=== PATIENT | male | born 1965 | race Hispanic/Latino ===

== ENCOUNTER 2019-08-07 07:43 | Inpatient (IN) | payer MEDICAID ==
--- NOTE | 2019-08-07 08:09 | Emergency Department Report ---
ED Chest Pain HPI - General Stated Complaint: CHEST PAIN Time Seen by Provider: 08/07/19 07:47 Source: patient Mode of arrival: Ambulatory Limitations: No Limitations - History of Present Illness Initial Comments: 53-year-old male with a past medical history of CAD with 2 stents and a current smoker presents to the hospital complaining of chest pains after waking up this morning. Patient describes a constant substernal and left-sided pressure rated at 7/10 in intensity. Patient states the pain feels similar to his previous heart attack. Patient denies pain radiation, nausea, vomiting, shortness of breath, or diaphoresis. By time of EMS arrival at 6:44 AM pain had resolved. Patient received aspirin. Patient states he had 2 stents (each placed 2 months apart) 2 years ago and has not had a cardiac cath since. He is not taking any medications including aspirin or Plavix. He recently moved here from [place] does not have a primary care doctor or hl7 developer currently. - Related Data Allergies Allergy/AdvReac Type Severity Reaction Status Date / Time Penicillins Allergy Unknown Verified 08/07/19 08:29 Heart Score - HEART Score History: Moderately suspicious EKG: Non-specific Age: 45-65 Risk factors: 1-2 risk factors Troponin: < normal limit HEART Score: 4 ED Review of Systems ROS: Stated complaint: CHEST PAIN Other details as noted in HPI Comment: All other systems reviewed and negative ED Past Medical Hx - Surgical History Hx Coronary Stent: Yes (x2 2018) - Social History Smoking Status: Current Every Day Smoker ED Physical Exam - Other Other exam information: General: No acute distress Head: Atraumatic Eyes: normal appearance ENT: Moist mucous membranes Neck: Normal appearance, no midline tenderness Chest: Clear to auscultation bilaterally, chest wall nontender CV: Regular rate and rhythm Abdomen: Soft, normal bowel sounds, nontender, nondistended, no rebound or guarding Back: Normal inspection Extremity: Normal inspection, full range of motion, no calf tenderness or leg edema Neuro: Alert O x 3, no facial asymmetry, speech clear, no gross motor sensory deficit Psych: Appropriate behavior Skin: No rash ED Course Vital Signs 08/07/19 08/07/19 08/07/19 07:50 08:00 08:15 Temperature 98.1 F Pulse Rate 72 77 Respiratory 16 15 Rate Blood Pressure 154/82 155/86 O2 Sat by Pulse 95 95 96 Oximetry 08/07/19 08/07/19 08/07/19 08:30 08:45 09:00 Temperature Pulse Rate 78 76 76 Respiratory 19 14 17 Rate Blood Pressure 161/89 150/85 164/86 O2 Sat by Pulse 97 97 99 Oximetry 08/07/19 08/07/19 08/07/19 09:15 09:30 09:45 Temperature Pulse Rate 73 75 75 Respiratory 18 14 15 Rate Blood Pressure 150/84 149/90 161/86 O2 Sat by Pulse 97 97 98 Oximetry 08/07/19 08/07/19 08/07/19 10:00 10:15 10:20 Temperature Pulse Rate 77 76 75 Respiratory 12 18 Rate Blood Pressure 151/80 142/81 161/86 O2 Sat by Pulse 99 99 Oximetry 08/07/19 08/07/19 08/07/19 10:30 10:45 11:00 Temperature Pulse Rate 73 76 73 Respiratory 14 15 Rate Blood Pressure 148/82 150/82 147/85 O2 Sat by Pulse 100 98 99 Oximetry - Reevaluation(s) Reevaluation #1: 08/07/19 08:17 after initial evaluation, heparin bolus and drip ordered, pt pain free - Consultations Consultation #1: 08/07/19 at 7:11a EMS ekg transmitted and discussed and reviewed with interventionalist hl7 developer Dr. Gudino. NO STEMI and no acute intervention recommended. Ekg repeated upon arrival 7:55am ED ekg reviewed by interventionalist. Similar to prehospital ekg. No intervention recommended at this time. Pt is pain free in ED upon arrival Consultation #2: 08/07/19 09:00 case d/w Amina Hernandez, will consult, request NPO, orders placed and RN informed MOSES score - Moses Score Age > 65: (0) No Aspirin use within the Past 7 Days: (0) No 3 or more CAD Risk Factors: (0) No 2 or more Angina events in past 24 hrs: (0) No Known CAD with more than 50% Stenosis: (1) Yes Elevated Cardiac Markers: (0) No ST Deviation Greater than 0.5mm: (0) No MOSES Score: 1 ED Medical Decision Making - Lab Data Result diagrams: 08/07/19 08:03 08/07/19 08:03 Lab Results 08/07/19 08/07/19 08/07/19 Range/Units 08:03 08:03 08:03 WBC 9.2 (4.5-11.0) K/mm3 RBC 4.12 (3.65-5.03) M/mm3 Hgb 13.2 (11.8-15.2) gm/dl Hct 38.5 (35.5-45.6) % MCV 93 (84-94) fl MCH 32 (28-32) pg MCHC 34 (32-34) % RDW 13.1 L (13.2-15.2) % Plt Count 221 (140-440) K/mm3 Lymph % (Auto) 9.6 L (13.4-35.0) % [place] % (Auto) 8.3 H (0.0-7.3) % Eos % (Auto) 1.7 (0.0-4.3) % Baso % (Auto) 0.8 (0.0-1.8) % Lymph # 0.9 L (1.2-5.4) K/mm3 [place] # 0.8 (0.0-0.8) K/mm3 Eos # 0.2 (0.0-0.4) K/mm3 Baso # 0.1 (0.0-0.1) K/mm3 Seg Neutrophils % 79.6 H (40.0-70.0) % Seg Neutrophils # 7.3 (1.8-7.7) K/mm3 PT 13.0 (12.2-14.9) Sec. INR 0.97 (0.87-1.13) APTT 26.3 (24.2-36.6) Sec. Sodium 133 L (137-145) mmol/L Potassium 4.7 (3.6-5.0) mmol/L Chloride 101.3 (98-107) mmol/L Carbon Dioxide 20 L (22-30) mmol/L Anion Gap 16 mmol/L BUN 14 (9-20) mg/dL Creatinine 1.1 (0.8-1.5) mg/dL Estimated GFR > 60 ml/min BUN/Creatinine Ratio 13 % Glucose 113 H (75-100) mg/dL Calcium 9.4 (8.4-10.2) mg/dL Troponin T < 0.010 (0.00-0.029) ng/mL - EKG Data -: EKG Interpreted by Me EKG shows normal: sinus rhythm, ST-T waves (slight st elevation inferior lead) Rate: normal - EKG Data When compared to previous EKG there are: previous EKG unavailable - Radiology Data Radiology results: report reviewed CHEST 1 VIEW INDICATION: Chest Pain. COMPARISON: None FINDINGS: Support devices: None. Heart: Within normal limits. Lungs/Pleura: No acute air space or interstitial disease. Additional findings: None. IMPRESSION: Normal AP chest - Medical Decision Making no acute intervention recommended by hl7 developer at this time. Initial troponin negative and patient pain free in the ED. Patient received aspirin prior to arrival. Patient started on heparin bolus plus drip given a history of CAD with stents and medication noncompliance. Case discussed with both hl7 developer and hospitalist. - Differential Diagnosis mi, unstable angina, atypical cp, pe Critical Care Time: No Critical care attestation.: If time is entered above; I have spent that time in minutes in the direct care of this critically ill patient, excluding procedure time. ED Disposition Clinical Impression: Chest pain, History of heart artery stent, Smoker, Noncompliance with medication regimen Disposition: DC-09 OP ADMIT IP TO THIS HOSP Is pt being admited?: Yes Does the pt Need Aspirin: Yes (provided by ems) Condition: Stable Time of Disposition: 08:53 (Dr Gilman/hosp as per Dr Dickey)
[2019-08-07] MEDS ORDERED: HEPARIN 10,000 UNITS/10 ML VIAL IV ONE (08:17)
--- NOTE | 2019-08-07 08:19 | XRay Report ---
CHEST 1 VIEW INDICATION: Chest Pain. COMPARISON: None FINDINGS: Support devices: None. Heart: Within normal limits. Lungs/Pleura: No acute air space or interstitial disease. Additional findings: None. IMPRESSION: Normal AP chest Signer Name: Edu Chacon Jr, MD Signed: 08/07/2019 8:14 AM Workstation Name: [id number]
[2019-08-07 08:24] LABS: Basophils # (Auto) 0.1 K/mm3 (0.0-0.1); Basophils % (Auto) 0.8 % (0.0-1.8); Eosinophils # (Auto) 0.2 K/mm3 (0.0-0.4); Eosinophils % (Auto) 1.7 % (0.0-4.3); Hematocrit 38.5 % (35.5-45.6); Hemoglobin 13.2 gm/dl (11.8-15.2); Lymphocytes # (Auto) 0.9 K/mm3 (1.2-5.4); Lymphocytes % (Auto) 9.6 % (13.4-35.0); Mean Corpuscular HGB Conc 34 % (32-34); Mean Corpuscular Volume 93 fl (84-94); Monocytes # (Auto) 0.8 K/mm3 (0.0-0.8); Monocytes % (Auto) 8.3 % (0.0-7.3); Platelet Count 221 K/mm3 (140-440); Red Blood Count 4.12 M/mm3 (3.65-5.03); Red Cell Distribution Width 13.1 % (13.2-15.2)
[2019-08-07 08:45] LABS: BUN/Creatinine Ratio 13; Blood Urea Nitrogen 14 mg/dL (9-20); Calcium 9.4 mg/dL (8.4-10.2); Hemolysis Index 9
[2019-08-07 08:49] LABS: INR 0.97 (0.87-1.13)
[2019-08-07 08:50] LABS: Partial Thromboplastin Time 26.3 Sec. (24.2-36.6)
[2019-08-07] MEDS ORDERED: HEPARIN/ 0.45% NACL DRIP 25,000 UNIT/500 ML BAG IV SCH ×2 (09:00→11:00)
[2019-08-07] MEDS ORDERED: ASPIRIN EC 81 MG TAB PO ONE (09:33)
[2019-08-07] MEDS ORDERED: carvediloL 3.125 MG TAB PO ONE (09:34)
--- NOTE | 2019-08-07 09:38 | History and Physical Report ---
History of Present Illness Date of examination: 08/07/19 Date of admission: 08/07/19 Chief complaint: chest pain History of present illness: 53-year-old male with a past medical history of CAD with 2 stents and a current smoker presents to the hospital complaining of chest pains after waking up this morning. Patient describes a constant substernal and left-sided pressure rated at 7/10 in intensity. Patient states the pain feels similar to his previous heart attack. Patient denies pain radiation, nausea, vomiting, shortness of breath, or diaphoresis. By time of EMS arrival at 6:44 AM pain had resolved. Patient received aspirin. Patient states he had 2 stents (each placed 2 months apart) 2 years ago and has not had a cardiac cath since. He is not taking any medications including aspirin or Plavix. 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 Review of Systems Constitutional: no weight loss, no weight gain, no fever, no chills, no sweats Ears, nose, mouth and throat: no ear pain, no nose pain, no sinus pressure, no sinus pain Cardiovascular: + chest pain, no orthopnea, no palpitations, no rapid/irregular heart beat, no edema, no syncope, no lightheadedness, no shortness of breath, no dyspnea on exertion, no leg edema Respiratory: no cough, no shortness of breath, no dyspnea on exertion, no congestion, no wheezing, no pain on inspiration Gastrointestinal: no abdominal pain, no nausea, no vomiting, no diarrhea, no constipation, no change in bowel habits Genitourinary Male: no dysuria, no hematuria, no flank pain, no discharge, no urinary frequency, no urinary hesitancy Musculoskeletal: no neck stiffness, no neck pain, no shooting arm pain, no arm numbness/tingling, no low back pain, no shooting leg pain Integumentary: no rash, no pruritis, no redness, no sores, no wounds Neurological: no head injury, no paralysis, no weakness, no parathesias, no numbness, no tingling, no seizures, no syncope Psychiatric: no anxiety Endocrine: no cold intolerance, no heat intolerance Hematologic/Lymphatic: no easy bruising, no easy bleeding Allergic/Immunologic: no urticaria, no wheezing Medications and Allergies Allergies Allergy/AdvReac Type Severity Reaction Status Date / Time Penicillins Allergy Unknown Verified 08/07/19 08:29 Home Medications Medication Instructions Recorded Confirmed Last Taken Type Banophen Anti-Itch 25 mg PO HS 08/07/19 08/08/19 08/06/19 History 25 mg DULoxetine [Cymbalta] 30 mg PO DAILY 08/07/19 08/08/19 08/06/19 History 30 mg Radnor Carbonate ER [Lithobid ER] 300 mg PO BID 08/07/19 08/08/19 08/06/19 History 300 mg Pilocarpine (Nf) 5 mg PO DAILY 08/07/19 08/08/19 08/06/19 History 5 mg QUEtiapine [SEROquel] 200 mg PO HS 08/07/19 08/08/19 08/06/19 History 200 mg carBAMazepine [TEGretol] 200 mg PO BID 08/07/19 08/08/19 08/06/19 History 200 mg lamoTRIgine [LaMICtal] 100 mg PO BID 08/07/19 08/08/19 08/06/19 History 100 mg Active Meds: Active Medications Aspirin (Halfprin Ec) 81 mg PO ONCE ONE Stop: 08/07/19 09:34 Atorvastatin Calcium (Lipitor) 40 mg PO QHS FLOWER Carvedilol (Coreg) 3.125 mg PO ONCE ONE Stop: 08/07/19 09:35 Heparin Sodium/Sodium Chloride (Heparin/ 0.45% Nacl-25,000 Unit/500 Ml) 25,000 unit in 500 mls @ 24.494 mls/hr IV TITRATE FLOWER; Protocol Last Admin: 08/07/19 08:36 Dose: 15 units/kg/hr, 24.494 mls/hr Documented by: Nicotine (Habitrol) 14 mg TD ONCE ONE Stop: 08/07/19 09:34 Exam - Constitutional Vitals: Temp Pulse Resp BP Pulse Ox 98.1 F 76 17 164/86 99 08/07/19 07:50 08/07/19 09:00 08/07/19 09:00 08/07/19 09:00 08/07/19 09:00 Results - Labs CBC & Chem 7: 08/07/19 17:19 08/07/19 08:03 Labs: Abnormal lab results 08/07/19 08/07/19 Range/Units 08:03 08:03 RDW 13.1 L (13.2-15.2) % Lymph % (Auto) 9.6 L (13.4-35.0) % [place] % (Auto) 8.3 H (0.0-7.3) % Lymph # 0.9 L (1.2-5.4) K/mm3 Seg Neutrophils % 79.6 H (40.0-70.0) % Sodium 133 L (137-145) mmol/L Carbon Dioxide 20 L (22-30) mmol/L Glucose 113 H (75-100) mg/dL Assessment and Plan NSTEMI with elevated troponin CAD with h/o PCI HTN, uncontrolled tobacco abuse medication non compliance - admit telemetry - cont aspirin, nitro patch, heparin drip, statin - resume home medication - monitor serial troponin and EKG - cardiology consulted - plan for cardiac cath tomorrow
[2019-08-07] MEDS ORDERED: NICOTINE 14 MG/24 HR PATCH TD ONE (10:00)
--- NOTE | 2019-08-07 14:34 | Consultation ---
History of Present Illness Consult date: 08/07/19 Requesting physician: NOEMY MEEKS Consult reason: chest pain History of present illness: The pt is a 53-year-old male with a past medical history of CAD s/p AMI with 2 stents (each placed 2 months apart), HTN, current tobacco smoker. 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 He is not currently taking any prescription medications. He presented with c/o chest pain since this AM. He states that he woke up today in his normal state of health and went outside to smoke a cigarette. After he finished smoking the cigarette, he noted the onset of constant substernal and left-sided chest pressure. Patient denies pain radiation, nausea, vomiting, shortness of breath, or diaphoresis. By time of EMS arrival at 6:44 AM, the pain had resolved. Patient received aspirin. Patient states he had 2 stents and has not had a cardiac cath since. Past History Past Medical History: CAD, hypertension Social history: smoking Medications and Allergies Allergies Allergy/AdvReac Type Severity Reaction Status Date / Time Penicillins Allergy Unknown Verified 08/07/19 08:29 Active Meds: Active Medications Atorvastatin Calcium (Lipitor) 40 mg PO QHS FLOWER Heparin Sodium/Sodium Chloride (Heparin/ 0.45% Nacl-25,000 Unit/500 Ml) 25,000 unit in 500 mls @ 20 mls/hr IV TITRATE FLOWER; Protocol Review of Systems Constitutional: no weight loss, no weight gain, no fever, no chills, no sweats Ears, nose, mouth and throat: no ear pain, no nose pain, no sinus pressure, no sinus pain Cardiovascular: chest pain, no orthopnea, no palpitations, no rapid/irregular heart beat, no edema, no syncope, no lightheadedness, no shortness of breath, no dyspnea on exertion, no leg edema Respiratory: no cough, no shortness of breath, no dyspnea on exertion, no congestion, no wheezing, no pain on inspiration Gastrointestinal: no abdominal pain, no nausea, no vomiting, no diarrhea, no constipation, no change in bowel habits Genitourinary Male: no dysuria, no hematuria, no flank pain, no discharge, no urinary frequency, no urinary hesitancy Musculoskeletal: no neck stiffness, no neck pain, no shooting arm pain, no arm numbness/tingling, no low back pain, no shooting leg pain Integumentary: no rash, no pruritis, no redness, no sores, no wounds Neurological: no head injury, no paralysis, no weakness, no parathesias, no numbness, no tingling, no seizures, no syncope Psychiatric: no anxiety Endocrine: no cold intolerance, no heat intolerance Hematologic/Lymphatic: no easy bruising, no easy bleeding Allergic/Immunologic: no urticaria, no wheezing Physical Examination Vital Signs Temp Pulse Resp BP Pulse Ox 98.1 F 72 16 154/82 95 08/07/19 07:50 08/07/19 07:50 08/07/19 07:50 08/07/19 07:50 08/07/19 07:50 General appearance: no acute distress HEENT: Positive: PERRL Neck: Positive: neck supple, trachea midline Cardiac: Positive: Reg Rate and Rhythm, S1/S2, Systolic Murmur Lungs: Positive: Decreased Breath Sounds Neuro: Positive: Grossly Intact Abdomen: Negative: Tender Skin: Negative: Rash Musculoskeletal: No Pain Extremities: Absent: edema Results 08/07/19 08:03 08/07/19 08:03 Coagulation 08/07/19 Range/Units 08:03 PT 13.0 (12.2-14.9) Sec. INR 0.97 (0.87-1.13) APTT 26.3 (24.2-36.6) Sec. CBC 08/07/19 Range/Units 08:03 WBC 9.2 (4.5-11.0) K/mm3 RBC 4.12 (3.65-5.03) M/mm3 Hgb 13.2 (11.8-15.2) gm/dl Hct 38.5 (35.5-45.6) % Plt Count 221 (140-440) K/mm3 Lymph # 0.9 L (1.2-5.4) K/mm3 [place] # 0.8 (0.0-0.8) K/mm3 Eos # 0.2 (0.0-0.4) K/mm3 Baso # 0.1 (0.0-0.1) K/mm3 Comprehensive Metabolic Panel 08/07/19 Range/Units 08:03 Sodium 133 L (137-145) mmol/L Potassium 4.7 (3.6-5.0) mmol/L Chloride 101.3 (98-107) mmol/L Carbon Dioxide 20 L (22-30) mmol/L BUN 14 (9-20) mg/dL Creatinine 1.1 (0.8-1.5) mg/dL Glucose 113 H (75-100) mg/dL Calcium 9.4 (8.4-10.2) mg/dL - Imaging and Cardiology Echo: pending EKG: report reviewed, image reviewed EKG interpretations - Telemetry EKG Rhythm: Sinus Rhythm - EKG Sinus rhythms and dysrhythmias: sinus rhythm Assessment and Plan Chest pain currently resolved. Suha negative for AMI x 2. D/c heparin gtt and plan for lexiscan MPI stress test in AM. NPO after MN. Obtain echo. Optimize anti-ischemic regimen. Smoking cessation encouraged. Further recs to follow per hospital course. The patient has been seen in conjunction with Dr. Herrmann who agrees with the assessment and plan of care. - Patient Problems (1) Chest pain Current Visit: Yes Status: Acute (2) CAD (coronary artery disease) Current Visit: Yes Status: Chronic (3) Stented coronary artery Current Visit: Yes Status: Chronic (4) HTN (hypertension) Current Visit: Yes Status: Chronic (5) Tobacco use Current Visit: Yes Status: Chronic (6) Noncompliance with medication regimen Current Visit: Yes Status: Chronic
[2019-08-07 15:33] LABS: Chol/HDL Ratio 3.37 %
[2019-08-07 17:35] LABS: Hematocrit 39.5 % (35.5-45.6); Hemoglobin 13.3 gm/dl (11.8-15.2)
[2019-08-07 17:50] LABS: INR 1.02 (0.87-1.13)
[2019-08-07 17:51] LABS: Partial Thromboplastin Time 36.3 Sec. (24.2-36.6)
[2019-08-07] MEDS: METOPROLOL TARTRATE 25 MG TAB PO SCH (21:35)
[2019-08-08] MEDS: lamoTRIgine 100 MG TAB PO SCH ×3 (02:54→21:14)
[2019-08-08] MEDS: carBAMazepine 200 MG TAB PO SCH ×3 (02:54→21:14)
[2019-08-08] MEDS: QUEtiapine 200 MG TAB PO SCH ×2 (02:59→21:14)
[2019-08-08] MEDS ORDERED: REGADENOSON 0.4 MG/5 ML INJ IV ONE (08:22)
[2019-08-08] MEDS ORDERED: SODIUM CHLORIDE 0.9% 500 ML 500 ML IV SCH (09:00)
[2019-08-08] MEDS ORDERED: MIDAZOLAM 2 MG/2 ML INJ ONE (09:26)
[2019-08-08] MEDS ORDERED: fentaNYL 100 MCG/2 ML INJ ONE (09:26)
[2019-08-08] MEDS ORDERED: HEPARIN/NS 5000 UNIT/500ML 1,000 ML IR ONE (09:27)
[2019-08-08] MEDS: HEPARIN 10,000 UNITS/10 ML VIAL ONE ×3 (09:58→10:14)
[2019-08-08] MEDS: VERAPAMIL 5 MG/2 ML INJ ONE ×2 (09:58→10:03)
[2019-08-08] MEDS: LIDOCAINE (2%) 20 MG/1 ML VIAL 20 ML MDV INFILTRATI ONE ×2 (09:58→10:02)
[2019-08-08] MEDS ORDERED: ASPIRIN 325 MG TAB PO SCH (10:00)
[2019-08-08] MEDS ORDERED: PILOCARPINE HCL 5 MG PO SCH (10:00)
[2019-08-08] MEDS ORDERED: HEPARIN/NS 5000 UNIT/500ML 500 ML IR ONE (10:16)
--- NOTE | 2019-08-08 11:16 | Cardiac Catherization Report ---
CARDIAC CATHETERIZATION REPORT INDICATION FOR PROCEDURE: The patient is a 53-year-old white gentleman with history of coronary intervention done many years ago, with history of manic depression. Subsequently, he did not have any cardiac followup, presented with prolonged chest pain and mildly elevated troponin suggestive of non-STEMI. Hence, scheduled for cardiac catheterization for definitive diagnosis and treatment. The patient is aware of the procedure, potential complications and alternatives of therapy available. DESCRIPTION OF PROCEDURE: The patient was brought to the catheterization laboratory in a fasting condition. The patient was evaluated for moderate sedation. He was felt to be appropriate candidate for moderate sedation and was given IV Versed and fentanyl. Subsequently, the patient was prepared in standard fashion. Right wrist area was anesthetized with local anesthetic and right radial artery puncture was made using 21-gauge arterial puncture needle. Subsequently, 5-Lithuanian slender sheath was introduced. A 5-Lithuanian multipurpose catheter was used to obtain the angiograms of the left coronary artery in multiple views followed by angiograms of the right coronary artery and left ventriculogram done in SINHA projection using hand injection. At the end of the procedure, the patient was noted to have borderline lesion in the high mid LAD and it was felt the patient would benefit from a functional evaluation with IFR. Hence, the IFR setup was done and the patient received IV heparin as anticoagulant. Subsequently, a pressure wire was advanced in a standard fashion without any difficulty into the mid LAD, and IFR was obtained in a standard fashion. It was found to be 0.95 that is not significant hemodynamically. At the end of the procedure, angiograms performed. No complications from the passage of the wire. Wire and guidewire was removed and good hemostasis was achieved with application of radial band. No untoward complications were noted at the end of the procedure. The patient was monitored for any side effects from moderate sedation using pulse oximetry, EKG monitoring, and hemodynamic monitoring. The patient's moderate sedation monitoring started at 9:55 a.m. and ended at 10:22 a.m. The patient at the end of the sedation was communicating normally, moving all the extremities and breathing normally. No untoward complications were noted. Following findings were noted. HEMODYNAMICS: 1. Opening aortic pressure 131/64. Left ventricular pressure 135/34. No gradient across the aortic valve. Estimated ejection fraction 55%. 2. Left ventriculogram done in SINHA projection showed normal sized left ventricle with normal contractility. Mitral regurgitation could not be evaluated because of the limited amount of dye injected. It is to be noted the patient's end-diastolic pressure is elevated. 3. Right coronary artery arises normally from right coronary cusp, only very mild irregularities noted. This is codominant vessel. 4. Left coronary artery arises normally from left coronary cusp. Left main without significant disease. Proximal LAD is smooth and normal, high mid LAD showed eccentric lesion, which appears to be hazy in the range of 50-60%. Distal to this lesion, there is a widely patent mid LAD stent. Distal LAD without significant disease. Circumflex artery showed widely patent stent involving the proximal and mid part of the large OM branch. Overall, no obstructive lesions noted in the circumflex artery. Collaterals none. Considering the borderline lesion in the high mid LAD as mentioned above, functional evaluation was performed using IFR and it was found to be not hemodynamically significant in the range of 0.95. FINAL IMPRESSION: Widely patent stents in the mid LAD and obtuse marginal branch, normal LV systolic function noted. Codominant RCA without significant disease. There is a borderline high mid LAD lesion and it was found to be not hemodynamically significant. Considering the above angiographic pictures, the patient will be continued on aggressive risk factor modification and medical therapy. No untoward complications were noted. Findings were explained to the patient and his . They understand. JOB# [id number] HINA/CHUCK
[2019-08-08] MEDS ORDERED: FLU VACC QUAD 2019-20 (3 YR UP)/PF 60 MCG/0.5 ML SYRINGE IM ONE (12:00)
[2019-08-08] MEDS: DULoxetine 30 MG CAP PO SCH (12:07)
[2019-08-08] MEDS: NICOTINE 14 MG/24 HR PATCH TD SCH (12:07)
[2019-08-08] MEDS: LITHIUM CARBONATE ER 300 MG TAB PO SCH ×2 (12:07→21:13)
[2019-08-08] MEDS: METOPROLOL TARTRATE 25 MG TAB PO SCH ×2 (12:08→21:15)
--- NOTE | 2019-08-08 12:53 | Progress Note ---
Assessment and Plan S/p [facility] via [facility] this AM which showed patent stents, nonobstructive CAD. Cont with medical management. Importance of medication compliance and smoking cessation reiterated. Await echo. Pending echo does not show any gross abnormalities, pt may discharge from cardiology standpoint. Recommend follow up in our office with Dr. Herrmann within 1-2 weeks ([phone]). The patient has been seen in conjunction with Dr. Herrmann who agrees with the assessment and plan of care. - Patient Problems (1) NSTEMI (non-ST elevated myocardial infarction) Current Visit: Yes Status: Acute (2) Chest pain Current Visit: Yes Status: Resolved (3) CAD (coronary artery disease) Current Visit: Yes Status: Chronic (4) Stented coronary artery Current Visit: Yes Status: Chronic (5) HTN (hypertension) Current Visit: Yes Status: Chronic (6) Tobacco use Current Visit: Yes Status: Chronic (7) Noncompliance with medication regimen Current Visit: Yes Status: Chronic Subjective Date of service: 08/08/19 Principal diagnosis: nstemi Interval history: pt for [facility] today, no current cardiac complaints, did not sleep well last night. at bedside. Objective Last Vital Signs Temp 97.8 F 08/08/19 08:22 Pulse 74 08/08/19 12:08 Resp 18 08/08/19 08:22 BP 115/66 08/08/19 12:08 Pulse Ox 97 08/08/19 08:22 - Physical Examination HEENT: Positive: PERRL Neck: Positive: neck supple, trachea midline Cardiac: Positive: Reg Rate and Rhythm, S1/S2 Lungs: Positive: Decreased Breath Sounds Neuro: Positive: Grossly Intact Abdomen: Negative: Tender Skin: Negative: Rash Musculoskeletal: No Pain Extremities: Absent: edema - Labs and Meds Coagulation 08/07/19 Range/Units 17:19 PT 13.5 (12.2-14.9) Sec. INR 1.02 (0.87-1.13) APTT 36.3 (24.2-36.6) Sec. Lipids 08/07/19 Range/Units 14:21 Triglycerides 88 (2-149) mg/dL Cholesterol 162 (50-199) mg/dL HDL Cholesterol 48 (40-59) mg/dL Cholesterol/HDL Ratio 3.37 % CBC 08/07/19 Range/Units 17:19 Hgb 13.3 (11.8-15.2) gm/dl Hct 39.5 (35.5-45.6) % Plt Count 232 (140-440) K/mm3 - Imaging and Cardiology EKG: report reviewed, image reviewed Echo: pending - EKG Sinus rhythms and dysrhythmias: sinus rhythm
--- NOTE | 2019-08-08 14:40 | Discharge Summary ---
Providers - Providers Date of Admission: 08/08/19 10:28 Date of discharge: 08/09/19 Attending physician: JOAO GAGE 08/07/19 09:00 Consult to Physician [CONS] Urgent Comment: Consulting Provider: LUIS DANIEL COHN Physician Instructions: Reason For Exam: cp, cad with stent x 2 08/08/19 12:49 Consult to Cardiac Rehabilitation [CONS] Routine Reason For Exam: Cardiac Rehab Evaluation Primary care physician: [facility]YL[facility] Hospitalization Condition: Stable Hospital course: Discharge diagnosis: NSTEMI with elevated troponin CAD with h/o PCI HTN, uncontrolled tobacco abuse medication non compliance Disposition: NE-01 TO HOME OR SELFCARE Time spent for discharge: 34 minutes Core Measure Documentation - Palliative Care Palliative Care/ Comfort Measures: Not Applicable - Core Measures Any of the following diagnoses?: none Exam - Constitutional Vitals: Temp Pulse Resp BP Pulse Ox 97.8 F 74 18 115/66 97 08/08/19 08:22 08/08/19 12:08 08/08/19 08:22 08/08/19 12:08 08/08/19 08:22 General appearance: Present: no acute distress, well-nourished - EENT Eyes: Present: PERRL ENT: hearing intact, clear oral mucosa - Neck Neck: Present: supple, normal ROM - Respiratory Respiratory effort: normal Respiratory: bilateral: CTA - Cardiovascular Heart Sounds: Present: S1 & S2. Absent: rub, click - Extremities Extremities: pulses symmetrical, No edema Peripheral Pulses: within normal limits - Abdominal General gastrointestinal: Present: soft, non-tender, non-distended, normal bowel sounds - Integumentary Integumentary: Present: clear, warm, dry - Musculoskeletal Musculoskeletal: gait normal, strength equal bilaterally - Psychiatric Psychiatric: appropriate mood/affect, intact judgment & insight - Neurologic Neurologic: CNII-XII intact, moves all extremities Plan Activity: advance as tolerated Weight Bearing Status: Weight Bear as Tolerated Diet: low fat, low salt Special Instructions: record daily BP diary, smoking cessation Follow up with: STEPHANI LEON MD [Primary Care Provider] - 7 Days Prescriptions: AtorvaSTATin [Lipitor] 40 mg PO QHS #30 tablet Aspirin [Aspirin BABY CHEW TAB] 81 mg PO QDAY #30 tab.chew Metoprolol [Lopressor TAB] 25 mg PO BID #60 tablet
[2019-08-08] MEDS ORDERED: ENOXAPARIN 40 MG/0.4 ML INJ SUB-Q SCH (22:00)
[2019-08-08] MEDS ORDERED: diphenhydrAMINE 25 MG CAP PO SCH (22:00)
[2019-08-08] MEDS ORDERED: [UNRECOGNIZED DRUG - OTHER] PO SCH (22:00)
[2019-08-09 06:27] LABS: Hematocrit 42.7 % (35.5-45.6); Hemoglobin 14.6 gm/dl (11.8-15.2)
[2019-08-09] MEDS: lamoTRIgine 100 MG TAB PO SCH (10:00)
[2019-08-09] MEDS ORDERED: ASPIRIN 81 MG TAB CHEW PO SCH (10:00)
[2019-08-09] MEDS ORDERED: PILOCARPINE (NF) 5 MG TAB PO SCH (10:00)
[2019-08-09] MEDS: carBAMazepine 200 MG TAB PO SCH (10:00)
[2019-08-09] MEDS: DULoxetine 30 MG CAP PO SCH (10:00)
[2019-08-09] MEDS: NICOTINE 14 MG/24 HR PATCH TD SCH (10:01)
[2019-08-09] MEDS: LITHIUM CARBONATE ER 300 MG TAB PO SCH (10:01)
[2019-08-09] MEDS: METOPROLOL TARTRATE 25 MG TAB PO SCH (10:02)
[2019-08-09 12:11] VITALS: BP 144/91
--- NOTE | 2019-08-09 12:15 | Progress Note ---
Assessment and Plan Currently stable cardiac status. TTE reviewed with no significant abnormalities. Pt may discharge from cardiology standpoint. Recommend follow up in our office with Dr. Herrmann within 1-2 weeks ([phone]). Pt verbalizes understanding. The patient has been seen in conjunction with Dr. Herrmann who agrees with the assessment and plan of care. - Patient Problems (1) NSTEMI (non-ST elevated myocardial infarction) Current Visit: Yes Status: Acute (2) Chest pain Current Visit: Yes Status: Resolved (3) CAD (coronary artery disease) Current Visit: Yes Status: Chronic (4) Stented coronary artery Current Visit: Yes Status: Chronic (5) HTN (hypertension) Current Visit: Yes Status: Chronic (6) Tobacco use Current Visit: Yes Status: Chronic (7) Noncompliance with medication regimen Current Visit: Yes Status: Chronic Subjective Date of service: 08/09/19 Principal diagnosis: nstemi Interval history: pt resting in bed, no current cardiac complaints. in SR on tele. Objective Last Vital Signs Temp 98.2 F 08/09/19 11:22 Pulse 73 08/09/19 11:22 Resp 18 08/09/19 11:22 BP 144/91 08/09/19 11:22 Pulse Ox 96 08/09/19 11:22 - Physical Examination General: No Apparent Distress HEENT: Positive: PERRL Neck: Positive: neck supple, trachea midline Cardiac: Positive: Reg Rate and Rhythm, S1/S2 Lungs: Positive: Decreased Breath Sounds Neuro: Positive: Grossly Intact Abdomen: Negative: Tender Skin: Negative: Rash Incision: Cardiac Cath Site (RRA c/d/i, no bleeding or hematoma) Musculoskeletal: No Pain Extremities: Absent: edema - Labs and Meds CBC 08/09/19 Range/Units 05:45 Hgb 14.6 (11.8-15.2) gm/dl Hct 42.7 (35.5-45.6) % Plt Count 242 (140-440) K/mm3 - Imaging and Cardiology EKG: report reviewed, image reviewed Echo: report reviewed - Telemetry EKG Rhythm: Sinus Rhythm - EKG Sinus rhythms and dysrhythmias: sinus rhythm
--- NOTE | 2019-08-09 14:45 | Progress Note ---
Assessment and Plan NSTEMI with elevated troponin CAD with h/o PCI HTN, uncontrolled tobacco abuse medication non compliance - monitor telemetry - cont aspirin, nitro patch, statin - d/c heparin drip - s/p cardiac cath showed patent stent - resumed home medication - cardiology consulted - plan for 2d echo - result pending - possible d/c if 2d echo results are normal Subjective Date of service: 08/08/19 Principal diagnosis: nstemi Interval history: Patient seen and examined denies any chest pain s/p cardiac cath today 2d echo pending Objective - Constitutional Vitals: Vital Signs - 12hr 08/09/19 08/09/19 08/09/19 03:53 07:53 08:00 Temperature 97.5 F L 98.4 F Pulse Rate 64 64 84 Pulse Rate [ 87 From Monitor] Respiratory 16 18 15 Rate Blood Pressure 137/80 159/79 O2 Sat by Pulse 95 95 97 Oximetry 08/09/19 08/09/19 08/09/19 09:58 10:02 11:22 Temperature 98.2 F Pulse Rate 65 71 73 Pulse Rate [ From Monitor] Respiratory 18 Rate Blood Pressure 144/80 144/80 144/91 O2 Sat by Pulse 96 96 Oximetry General appearance: Present: no acute distress, well-nourished - EENT Eyes: PERRL, EOM intact ENT: hearing intact, clear oral mucosa Ears: bilateral: normal - Neck Neck: supple, normal ROM - Respiratory Respiratory effort: normal Respiratory: bilateral: CTA - Cardiovascular Rhythm: regular Heart Sounds: Present: S1 & S2. Absent: gallop, rub Extremities: pulses intact, No edema, normal color, Full ROM - Gastrointestinal General gastrointestinal: Present: soft, non-tender, non-distended, normal bowel sounds - Integumentary Integumentary: clear, warm, dry - Musculoskeletal Musculoskeletal: 1, strength equal bilaterally - Neurologic Neurologic: moves all extremities - Psychiatric Psychiatric: memory intact, appropriate mood/affect, intact judgment & insight - Labs CBC & Chem 7: 08/09/19 05:45 08/07/19 08:03 Labs: Abnormal lab results 08/08/19 Range/Units 21:30 POC Glucose 110 H (70-105) - Imaging and cardiology Chest x-ray: report reviewed (normal CXR)
== END 2019-08-09 13:32 | disposition home or self-care (01) | DRG 282 ==
LOC: ED 07:43 → 4A 08:54 → OBSVTOIN 08-08 10:28
PROVIDERS: ADMIT Internal Medicine; ATTEND Internal Medicine
PROC: 4A023N7 Measurement of Cardiac Sampling and Pressure, Left Heart, Percutaneous Approach (ICD-10-PCS; principal; 2019-08-08)
PROC: B2111ZZ Fluoroscopy of Multiple Coronary Arteries using Low Osmolar Contrast (ICD-10-PCS; 2019-08-08)
PROC: B2151ZZ Fluoroscopy of Left Heart using Low Osmolar Contrast (ICD-10-PCS; 2019-08-08)
DX: I21.4 Non-ST elevation (NSTEMI) myocardial infarction (principal); I10 Essential (primary) hypertension; I25.10 Atherosclerotic heart disease of native coronary artery without angina pectoris; F32.9 Major depressive disorder, single episode, unspecified; F17.200 Nicotine dependence, unspecified, uncomplicated; Z95.5 Presence of coronary angioplasty implant and graft; Z91.14 Patient's other noncompliance with medication regimen; Z71.6 Tobacco abuse counseling
CPT/HCPCS: 36415; 71045; 80048; 80061; 82962; 84484; 85014; 85018; 85025; 85049; 85520; 85610; 85730; 90686; 93005; 93010; 93306; 93458; 93571; 96374; 99406; G0378; A9270-GY; C1769; C1887; C1894; J1644; J1650; J2250; J3010; J7040; Q9967